=== PATIENT | female | born 1950 | race Caucasian/White ===

== ENCOUNTER 2021-01-31 17:00 | Observation (INO) | payer MEDICARE, OTHER ==
[~2021-01-31] VITALS: Ht 177.8 cm; Wt 114.3 kg
[2021-01-31] MEDS ORDERED: ATENOLOL100 MG PO (19:44)
[2021-01-31] MEDS ORDERED: FUROSEMIDE20 MG PO (19:44)
[2021-01-31] MEDS ORDERED: BUSPIRONE HCL5 MG PO (19:45)
[2021-01-31] MEDS ORDERED: LIPITOR TAB 2020 MG PO (19:45)
[2021-01-31] MEDS ORDERED: COZAAR25 MG PO (19:45)
[2021-01-31] MEDS ORDERED: AMLODIPINE BESYL5 MG PO (19:46)
[2021-01-31] MEDS ORDERED: METFORMIN HCL500 MG PO (19:46)
[2021-01-31] MEDS ORDERED: LEVOTHYROXINE88 MC1 PO (19:46)
[2021-01-31] MEDS ORDERED: ZOLOFT50 MG PO (19:48)
[2021-01-31] MEDS ORDERED: LORATADINE10 MG PO (19:48)
[2021-01-31] MEDS ORDERED: HYDROXYZINE HCL25 MG PO (19:48)
[2021-01-31 21:05] LABS: HEMOGLOBIN 7.7 gm/dl (12.3-15.3); RED BLOOD COUNT 4.04 M/UL (4.00-5.10); WHITE BLOOD COUNT 11.1 K/UL (4.5-11.0)
[2021-01-31 21:30] LABS: BUN/CREATININE RATIO 27 (0-10)
[2021-02-01 03:12] LABS: HEMOGLOBIN 7.4 gm/dl (12.3-15.3); RED BLOOD COUNT 3.92 M/UL (4.00-5.10); WHITE BLOOD COUNT 8.7 K/UL (4.5-11.0)
[2021-02-01 03:31] LABS: BUN/CREATININE RATIO 24 (0-10)
[2021-02-01] MEDS ORDERED: ATENOLOL100 MG PO (14:44)
[2021-02-01] MEDS ORDERED: PROTONIX 40 MG40 M1 PO (14:44)
[2021-02-01] MEDS ORDERED: FEOSOL325 MG PO (15:02)
== END 2021-02-02 18:03 | disposition home health service (06) ==
LOC: PROG CARE 19:20
PROVIDERS: Internal Medicine; Internal Medicine Gastroenterology; ADMIT Internal Medicine
PROC: 0DB78ZX Excision of Stomach, Pylorus, Via Natural or Artificial Opening Endoscopic, Diagnostic (ICD-10-PCS; 2021-02-01)
PROC: 0DB68ZX Excision of Stomach, Via Natural or Artificial Opening Endoscopic, Diagnostic (ICD-10-PCS; principal; 2021-02-01 10:49)
DX: K25.4 Chronic or unspecified gastric ulcer with hemorrhage (principal); K44.9 Diaphragmatic hernia without obstruction or gangrene; K31.9 Disease of stomach and duodenum, unspecified; D50.9 Iron deficiency anemia, unspecified; F39 Unspecified mood [affective] disorder; F41.9 Anxiety disorder, unspecified; I10 Essential (primary) hypertension; E03.9 Hypothyroidism, unspecified; E11.9 Type 2 diabetes mellitus without complications; E78.5 Hyperlipidemia, unspecified; G43.909 Migraine, unspecified, not intractable, without status migrainosus; R26.81 Unsteadiness on feet; M19.90 Unspecified osteoarthritis, unspecified site; Z20.822 Contact with and (suspected) exposure to COVID-19; Z79.84 Long term (current) use of oral hypoglycemic drugs; Z79.899 Other long term (current) drug therapy; Z85.3 Personal history of malignant neoplasm of breast; Z86.711 Personal history of pulmonary embolism; Z86.73 Personal history of transient ischemic attack (TIA), and cerebral infarction without residual deficits
CPT/HCPCS: 36415; 71045; 80048; 80053; 82962; 85007; 85025; 85027; 86850; 86900; 86901; 93005; 96374; 96375; 96376; 97161; C9113; G0378; G0379; J0696; J2001; J2704; J7040